=== PATIENT | female | born 1955 | race African-American/Black ===

== ENCOUNTER 2024-06-04 13:36 | Emergency (ER) | payer MEDICAID ==
[~2024-06-04] VITALS: Ht 172.7 cm; Wt 70.0 kg
[~2024-06-04 13:36] MED LIST: AMLO5TAB5 PO; CLAR10 PO; DIPH25CA83 PO
[2024-06-04 13:46] VITALS: TEMP 98.1; O2SAT 97
[2024-06-04 14:22] LABS: CHLORIDE 105 mEq/L (98-107); POTASSIUM 4.1 mEq/L (3.5-5.1); SODIUM 139 mEq/L (136-145)
[2024-06-04 14:23] LABS: CARBON DIOXIDE 25 mEq/L (21-32)
[2024-06-04 14:28] LABS: GLUCOSE 102 mg/dL (70-105); UREA NITROGEN BLOOD 17 mg/dL (9-23)
[2024-06-04 14:30] LABS: ALANINE AMINOTRANSFERASE 13 IU/L (10-49); ASPARTATE AMINOTRANSFERASE 18 IU/L (<34); BILIRUBIN TOTAL 0.9 mg/dL (0.1-1.0); PROTEIN TOTAL 7.7 g/dL (6.0-8.3)
[2024-06-04 14:45] LABS: BASOPHILS % 0.7 % (0.0-2.0); EOSINOPHILS % 11.7 % (0.0-5.0); HEMATOCRIT. 29.8 % (36.0-48.0); HEMOGLOBIN. 9.3 g/dL (12.0-16.0); LYMPHOCYTES % 19.7 % (20.0-50.0); MEAN CORPUSCULAR HEMOGLOBIN 23.2 pg (28.0-32.0); MEAN CORPUSCULAR HGB CONC 31.2 g/dL (31.0-37.0); MEAN CORPUSCULAR VOLUME 74.4 fL (81.0-99.0); MEAN PLATELET VOLUME 8.5 fl (7.4-10.4); MONOCYTES % 11.3 % (2.0-8.0); NEUTROPHILS % 56.6 % (40.0-76.0); PLATELET 324 x1000/uL (130-400); RED BLOOD CELL COUNT 4.01 mill/uL (4.2-5.4); RED CELL DISTRIBUTION WIDTH 31.9 % (11.6-14.6); WHITE BLOOD COUNT 6.6 x1000/uL (4.5-11.0)
[2024-06-04 15:00] LABS: ADD RBC MORPHOLOGY YES; DIFFERENTIAL COMMENT 1
[2024-06-04 15:13] LABS: PLATELET ESTIMATE NORMAL
[2024-06-04 15:14] LABS: ANISOCYTOSIS 3+; HYPOCHROMASIA 1+; TARGET CELLS FEW
[2024-06-04] MEDS ORDERED: DOXY100C5 MT (15:22)
[2024-06-04] MEDS ORDERED: AMOX1TAB16 MT (15:22)
[2024-06-04 15:47] VITALS: BP 116/61; PULSE 75; RESP 18; O2SAT 96
== END 2024-06-04 15:48 | disposition home or self-care (01) ==
LOC: ER 13:36
DX: J18.9 Pneumonia, unspecified organism (principal); E11.9 Type 2 diabetes mellitus without complications; Z88.5 Allergy status to narcotic agent; Z88.0 Allergy status to penicillin; Z79.899 Other long term (current) drug therapy
CPT/HCPCS: 36415; 71046; 80053; 85025; 99284